=== PATIENT | male | born 1965 | race Two or more races ===

== ENCOUNTER 2021-05-23 11:45 | Day surgery (SDC) | payer OTHER ==
[~2021-05-23 11:45] MED LIST: ATORVASTATIN CA10 MG PO; LEVOTHYROXINE25 MCG PO
[2021-05-23] MEDS ORDERED: PERCOCET 5-3251 EACH PO (17:34)
== END 2021-05-23 21:20 | disposition home or self-care (01) ==
LOC: CIR.AMB 11:45
PROVIDERS: ATTEND Surgery
DX: N48.6 Induration penis plastica (principal); Z20.822 Contact with and (suspected) exposure to COVID-19